=== PATIENT | male | born 1970 | race African-American/Black ===

== ENCOUNTER 2017-01-28 14:25 | Inpatient (IN) | payer SELFPAY ==
[2017-01-28 15:03] VITALS: BMI 22.6
--- NOTE | 2017-01-28 16:07 | HP ---
CIWA Score - CIWA Score Nausea/Vomitin Muscle Tremors: 4-Moderate,w/Arms Extend Anxiety: 4-Mod. Anxious/Guarded Agitation: 4-Moderately Restless Paroxysmal Sweats: 3 Orientation: 0-Oriented Tacttile Disturbances: 1-Very Mild Itch/Numbness Auditory Disturbances: 0-None Visual Disturbances: 0-None Headache: 1-Very Mild CIWA-Ar Total Score: 20 Admission ROS BHS - HPI Chief Complaint: requesting admission for alcohol withdrawal sx Allergies/Adverse Reactions: Allergies Allergy/AdvReac Type Severity Reaction Status Date / Time No Known Allergies Allergy Verified 01/28/17 15:26 History of Present Illness: 46 yo m with h/o chronic alcoholism and HTN, has not been taking meds, multiple admissions inpatient detoxification smokes 1PPD PMHX anxiety, depression, torn rotator cuff s/p surgery diverticulitis has recently relpased was sober x 8 months last year, 4 months before that. no h/o withdrawal seizures or dts never been intubated, reports SASHA when he does not drink, last drink today. drinks 2 pints vodka, no other drugs used. reports happiness kept him sober Exam Limitations: No Limitations - Ebola screening Have you traveled outside of the country in the last 21 days: No Have you had contact with anyone from an Ebola affected area: No Have you been sick,other than usual withdrawal symptoms: No Do you have a fever: No - Review of Systems Constitutional: Diaphoresis, Weakness, Unintentional Wgt. Loss EENT: reports: No Symptoms Reported Respiratory: reports: SOB with Exertion Cardiac: reports: Chest Pain (tender right chest wal on palpation) GI: reports: Abdominal Distended, Constipated, Nausea, Poor Appetite, Poor Fluid Intake, Indigestion, Abdominal cramping : reports: No Symptoms Reported Musculoskeletal: reports: No Symptoms Reported Integumentary: reports: Flushing, Sweating Neuro: reports: Headache, Numbness, Paresthesia, Tremors, Weakness Endocrine: reports: No Symptoms Reported Hematology: reports: No Symptoms Reported Psychiatric: reports: Judgement Intact, Mood/Affect Appropiate, Orientated x3, Agitated, Anxious, Depressed Other Systems: Reviewed and Negative Patient History - Patient Medical History Hx Anemia: No Hx Asthma: No Hx Chronic Obstructive Pulmonary Disease (COPD): No Hx Cancer: No Hx Cardiac Disorders: No Hx Congestive Heart Failure: No Hx Hypertension: Yes Hx Hypercholesterolemia: No Hx Pacemaker: No HX Cerebrovascular Accident: No Hx Seizures: No Hx Diabetes: No Hx Gastrointestinal Disorders: No Hx Liver Disease: No Hx Genitourinary Disorders: No Hx Sexually Transmitted Disorders: Yes (VENARIAL WARTS) Hx Renal Disease (ESRD): No Hx Thyroid Disease: No Hx Human Immunodeficiency Virus (HIV): No (LAST 08/07/14 NEGATIVE) Hx Hepatitis C: No Hx Depression: Yes Hx Suicide Attempt: No Hx Bipolar Disorder: No Hx Schizophrenia: No - Patient Surgical History Past Surgical History: Yes Hx Neurologic Surgery: No Hx Cataract Extraction: No Hx Cardiac Surgery: No Hx Lung Surgery: No Hx Breast Surgery: No Hx Breast Biopsy: No Hx Abdominal Surgery: Yes (DIVERTICULITIS COLOSTOMY REVERSED 11/2016) Hx Appendectomy: No Hx Cholecystectomy: No Hx Genitourinary Surgery: No Hx Section: No Hx Orthopedic Surgery: No Other Surgical History: Sx for R rotator cuff in 2002 Anesthesia Reaction: No - PPD History Previous Implant?: Yes Documented Results: Negative w/proof Implanted On Prior [facility] Admission?: Yes Date: 07/14/15 Results: 0 MM - Reproductive History Patient is a Female of Child Bearing Age (11 -55 yrs old): No Patient : No - Smoking Cessation Smoking history: Current every day smoker Have you smoked in the past 12 months: Yes Aproximately how many cigarettes per day: 15 Cigars Per Day: 0 Hx Chewing Tobacco Use: No Initiated information on smoking cessation: Yes 'Breaking Loose' booklet given: 01/28/17 - Substance & Tx. History Hx Alcohol Use: Yes Hx Substance Use: No Substance Use Type: Alcohol Hx Substance Use Treatment: Yes ([facility] in past) - Substances Abused Alcohol Route: Oral Frequency: Daily Amount used: VODKA(2 PINTS) Age of first use: 15 Date of Last Use: 01/28/17 Family Disease History - Family Disease History Family Disease History: Diabetes: Grandparent, Respiratory: Mother ( FROM COPD; drug abuse), Other: Mother Admission Physical Exam BHS - Vital Signs Vital Signs: Vital Signs - 24 hr 01/28/17 15:02 Temperature 98.3 F Pulse Rate 101 H Respiratory 20 Rate Blood Pressure 135/95 - Physical General Appearance: Yes: Disheveled, Mild Distress, Thin, Tremorous, Irritable, Sweating, Anxious HEENTM: Yes: Within Normal Limits, EOMI, Hearing grossly Normal, Normal ENT Inspection, Normocephalic, Normal Voice, EVAN, Pharynx Normal, Tm's normal Respiratory: Yes: Within Normal Limits, Chest Non-Tender, Lungs Clear, Normal Breath Sounds, No Respiratory Distress, No Accessory Muscle Use Neck: Yes: Within Normal Limits, No masses,lesions,Nodules, Supple, Trachea in good position Breast: Yes: Breast Exam Deferred Cardiology: Yes: Within Normal Limits, Regular Rhythm, Regular Rate, S1, S2 Abdominal: Yes: Normal Bowel Sounds, Non Tender, Flat, Soft, Increased Bowel Sounds Genitourinary: Yes: Within Normal Limits Back: Yes: Within Normal Limits, Normal Inspection Musculoskeletal: Yes: Within Normal Limits, full range of Motion Extremities: Yes: Normal Capillary Refill, Normal Range of Motion, Non-Tender, Tremors Neurological: Yes: 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 NML intact, Fully Oriented, Alert, Motor Strength 5/5, Normal Response, Depressed Affect Integumentary: Yes: Normal Color, Warm, Diaphoresis, Moist Lymphatic: Yes: Within Normal Limits - Addiitonal Findings: alcohol withdrawal sx noted - Diagnostic (1) Alcohol dependence with uncomplicated withdrawal Current Visit: Yes Status: Chronic (2) Alcohol-induced anxiety disorder Current Visit: Yes Status: Acute (3) Alcohol-induced sleep disorder Current Visit: Yes Status: Acute (4) Diverticulitis Current Visit: No Status: Chronic (5) Drug-induced mood disorder Current Visit: Yes Status: Acute (6) Macrocytic anemia Current Visit: No Status: Suspected (7) Syncope Current Visit: Yes Status: Acute (8) Weight loss Current Visit: Yes Status: Acute (9) Anxiety and depression Current Visit: No Status: Chronic (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 (11) Hypertension Current Visit: No Status: Chronic Qualifiers: Hypertension type: essential hypertension Qualified Code(s): I10 - Essential (primary) hypertension (12) Nicotine dependence Current Visit: Yes Status: Chronic Qualifiers: Nicotine product type: cigarettes Substance use status: uncomplicated Qualified Code(s): F17.210 - Nicotine dependence, cigarettes, uncomplicated Cleared for Admission S - Detox or Rehab [facility] Level of Care: Medically Managed Detox Regimen/Protocol: Librium BHS Breath Alcohol Content Breath Alcohol Content: 0.205 Urine Drug Screen - Results Drug Screen Negative: Yes
[2017-01-28] MEDS ORDERED: NICOTINE POLACRILEX 4 MG GUM BC PRN (16:45)
[2017-01-28] MEDS ORDERED: ACETAMINOPHEN 325 MG TABLET (FP) PO PRN (16:45)
[2017-01-28] MEDS ORDERED: guaiFENesin/D-METHORPHAN HB 10 ML UNIT-DOSE CUPS PO PRN (16:45)
[2017-01-28] MEDS ORDERED: P-EPHED 60MG/TRIPROLIDI 2.5MG TABLET PO PRN (16:45)
[2017-01-28] MEDS ORDERED: hydrOXYzine PAMOATE 50 MG CAPSULE (FP) PO PRN (16:45)
[2017-01-28] MEDS ORDERED: IBUPROFEN 400 MG TABLET (FP) PO PRN (16:45)
[2017-01-28] MEDS ORDERED: MAGNESIUM CITRATE 300 ML BOTTLE PO PRN (16:45)
[2017-01-28] MEDS ORDERED: MAG HYDROX/AL HYDROX/SIMETH 30 ML UNIT-DOSE CUP PO PRN (16:45)
[2017-01-28] MEDS ORDERED: LOPERAMIDE HCL 2 MG CAPSULE PO PRN (16:45)
[2017-01-28] MEDS ORDERED: chlordiazePOXIDE HCL 25 MG CAPSULE PO PRN (16:45)
[2017-01-28] MEDS ORDERED: MENTHOL/PHENOL 1 EACH UD MM PRN (16:45)
[2017-01-28] MEDS ORDERED: chlordiazePOXIDE HCL 25 MG CAPSULE PO ONE (16:45)
[2017-01-28] MEDS ORDERED: MAGNESIUM HYDROX 2400MG/30ML ORAL SUSPENSION 30 ML CUP PO PRN (16:45)
[2017-01-28] MEDS: METOPROLOL SUCCINATE 50 MG TAB.SR.24H (FP) PO SCH (17:55)
[2017-01-28] MEDS ORDERED: chlordiazePOXIDE HCL 25 MG CAPSULE ONE (17:59)
[2017-01-28] MEDS: NICOTINE 21 MG/24 HOURS TOPICAL PATCH TD SCH (18:33)
[2017-01-28] MEDS: THIAMINE HCL 100 MG TABLET (FP) PO SCH (22:46)
[2017-01-28] MEDS: chlordiazePOXIDE HCL 25 MG CAPSULE PO SCH (22:46)
[2017-01-29] MEDS: chlordiazePOXIDE HCL 25 MG CAPSULE PO SCH ×4 (05:30→22:19)
[2017-01-29 09:37] LABS: MCH 30.7 pg (25.7-33.7); MCHC 32.8 g/dl (32.0-35.9); MEAN CELL VOLUME 93.6 fl (80-96); MEAN PLT VOLUME 8.4 fl (7.5-11.1); PLATELET COUNT 235 K/MM3 (134-434); RDW 19.1 % (11.9-15.9); WHITE BLOOD COUNT 3.7 K/mm3 (4.0-10.0)
[2017-01-29 10:00] LABS: SGOT/AST 64 U/L (15-37); SGPT/ALT 28 U/L (12-78)
[2017-01-29 10:04] LABS: ALBUMIN 3.7 g/dl (3.4-5.0); ALK PHOS 86 U/L (45-117); ANION GAP 6 (8-16); BILIRUBIN,TOTAL 0.5 mg/dL (0.2-1.0); CALCIUM 9.2 mg/dL (8.5-10.1); CO2 35 mmol/L (21-32); CREATININE 0.9 mg/dL (0.7-1.3); GLUCOSE,RANDOM 101 mg/dL (74-106); TOT PROT 6.9 g/dl (6.4-8.2)
--- NOTE | 2017-01-29 10:17 | CONSULT ---
[facility] Psychiatric Consult - Data Date of interview: 01/29/17 Admission source: [facility] Identifying data: This is a 46 year old Black male,father of 11 year old daughter, he is currenlty unemployed (was laid off from [employer]), he is domiciled. Substance Abuse History: Age of first use 15, drinks 2 pints of vodka, smokes cigarettes 15-20 1 day. Medical History: Significant for history of HTN, Diverticulosis and S/P Rotator Cuff repair right shoulder. Psychiatric History: Denies history psychiatric treatment other then was under the psychotherapy when was 15 year old when parents . He feels sometimes anxious. Physical/Sexual Abuse/Trauma History: Denies. Mental Status Exam - Mental Status Exam Alert and Oriented to: Time, Place, Person Cognitive Function: Grossly Intact Patient Appearance: Well Groomed Mood: Sad, Irritable Affect: Appropriate, Mood Congruent Patient Behavior: Cooperative Speech Pattern: Clear, Appropriate Voice Loudness: Normal Thought Process: Goal Oriented Thought Disorder: Not Present Hallucinations: Denies Suicidal Ideation: Denies Homicidal Ideation: Denies Insight/Judgement: Fair Sleep: Fair Appetite: Fair Muscle strength/Tone: Normal Gait/Station: Normal Psychiatric Findings - Problem List ([place] 1, 2,3) (1) Drug-induced mood disorder Current Visit: Yes Status: Acute (2) Alcohol dependence with uncomplicated withdrawal Current Visit: Yes Status: Chronic (3) Nicotine dependence Current Visit: Yes Status: Chronic Qualifiers: Nicotine product type: cigarettes Substance use status: uncomplicated Qualified Code(s): F17.210 - Nicotine dependence, cigarettes, uncomplicated - Initial Treatment Plan Initial Treatment Plan: to continue detox. protocol, monitor progress as needed.
[2017-01-29] MEDS: METOPROLOL SUCCINATE 50 MG TAB.SR.24H (FP) PO SCH (10:58)
[2017-01-29] MEDS: NICOTINE 21 MG/24 HOURS TOPICAL PATCH TD SCH (10:58)
[2017-01-29] MEDS: PRENATAL VITAMINS W/ FOLIC ACID TABLET (FP) PO SCH (10:59)
[2017-01-29] MEDS: THIAMINE HCL 100 MG TABLET (FP) PO SCH (22:19)
[2017-01-29] MEDS: diphenhydrAMINE HCL 50 MG CAPSULE PO PRN (22:19)
[2017-01-30] MEDS: chlordiazePOXIDE HCL 25 MG CAPSULE PO SCH ×3 (05:52→17:41)
[2017-01-30] MEDS: NICOTINE 21 MG/24 HOURS TOPICAL PATCH TD SCH (10:26)
[2017-01-30] MEDS: METOPROLOL SUCCINATE 50 MG TAB.SR.24H (FP) PO SCH (10:27)
[2017-01-30] MEDS: PRENATAL VITAMINS W/ FOLIC ACID TABLET (FP) PO SCH (10:27)
--- NOTE | 2017-01-30 12:03 | PN ---
S CIWA - CIWA Score Nausea/Vomitin-No Nausea/No Vomiting Muscle Tremors: 3 Anxiety: 3 Agitation: 4-Moderately Restless Paroxysmal Sweats: 3 Orientation: 0-Oriented Tacttile Disturbances: 0-None Auditory Disturbances: 0-None Visual Disturbances: 0-None Headache: 0-None Present CIWA-Ar Total Score: 13 BHS Progress Note (SOAP) Subjective: agitation sweats body aches shakes interrupted sleep irritable Objective: 01/30/17 12:01 Vital Signs Temperature 97.5 F L 01/30/17 06:00 Pulse Rate 86 01/30/17 11:12 Respiratory Rate 18 01/30/17 11:12 Blood Pressure 136/92 01/30/17 11:12 O2 Sat by Pulse Oximetry (%) Laboratory Tests 01/29/17 01/29/17 01/29/17 05:30 05:30 05:30 WBC 3.7 L RBC 4.26 D Hgb 13.1 D Hct 39.9 MCV 93.6 MCH 30.7 D MCHC 32.8 RDW 19.1 H D Plt Count 235 D MPV 8.4 D Sodium 142 Potassium 3.8 Chloride 101 Carbon Dioxide 35 H Anion Gap 6 L BUN 9 D Creatinine 0.9 D Creat Clearance w eGFR > 60 Random Glucose 101 D Calcium 9.2 Total Bilirubin 0.5 D AST 64 H D ALT 28 Alkaline Phosphatase 86 Total Protein 6.9 Albumin 3.7 RPR Titer Nonreactive rest of labs pending awake/alert ambulating no acute distress Assessment: 01/30/17 12:03 withdrawal sx Plan: continue detox increase fluids
[2017-01-30 18:02] LABS: URINE APPEARANCE CLOUDY; URINE BILIRUBIN NEGATIVE (NEGATIVE); URINE BLOOD NEGATIVE (NEGATIVE); URINE COLOR AMBER; URINE GLUCOSE (UA) NEGATIVE (NEGATIVE); URINE KETONE NEGATIVE (NEGATIVE); URINE LEUK ESTERASE NEGATIVE (NEGATIVE); URINE NITRITE NEGATIVE (NEGATIVE); URINE PROTEIN NEGATIVE (NEGATIVE); URINE UROBILINOGEN NEGATIVE mg/dL (0.2-1.0)
--- NOTE | 2017-01-30 18:36 | EKG ---
Test Reason : Blood Pressure : / mmHG Vent. Rate : 078 BPM Atrial Rate : 078 BPM P-R Int : 132 ms QRS Dur : 106 ms QT Int : 404 ms P-R-T Axes : 047 -20 059 degrees QTc Int : 460 ms NORMAL SINUS RHYTHM WITH SINUS ARRHYTHMIA NONSPECIFIC ST-T ABNORMALITIES WHEN COMPARED WITH ECG OF 28-DEC-2014 09:47, NO SIGNIFICANT CHANGE WAS FOUND REPEAT EKG IF CLINICALLY INDICATED Confirmed by ANDRES BRYAN MD ([id number]) on 01/30/2017 6:36:09 PM Referred By: Confirmed By:ANDRES BRYAN MD
--- NOTE | 2017-01-30 20:12 | PN ---
[facility] Note: 46 years old male admitted to [facility] [place] for alcohol detox, medical history of hypertension, depression, surgical treatment for diverticulosis with left colonstoma reversed approxi 2 months ago. contstipation resolved by mom x 1 , severe abdominal pain after dinner 01/30/17, reports dark green stool x 8 episode today multiple scar noted on abdomen, mild distended abdomen, tender, tolerate fluid better. ambulance had been called, information provided to JEREMÍAS Beltre.
[2017-01-30] MEDS: THIAMINE HCL 100 MG TABLET (FP) PO SCH (23:50)
[2017-01-30] MEDS: chlordiazePOXIDE 5 MG CAPSULE PO SCH (23:50)
[2017-01-31] MEDS ORDERED: cloNIDine HCL 0.1 MG TABLET PO ONE (03:38)
[2017-01-31] MEDS: chlordiazePOXIDE 5 MG CAPSULE PO SCH ×3 (05:29→17:27)
--- NOTE | 2017-01-31 10:10 | PN ---
S CIWA - CIWA Score Nausea/Vomitin Muscle Tremors: 4-Moderate,w/Arms Extend Anxiety: 4-Mod. Anxious/Guarded Agitation: 4-Moderately Restless Paroxysmal Sweats: 3 Orientation: 0-Oriented Tacttile Disturbances: 1-Very Mild Itch/Numbness Auditory Disturbances: 0-None Visual Disturbances: 0-None Headache: 1-Very Mild CIWA-Ar Total Score: 20 BHS Progress Note (SOAP) Subjective: nausea, sweats, interrupted sleep, anxiety, tremors Objective: 01/31/17 10:10 Vital Signs - 24 hr 01/30/17 01/30/17 01/30/17 11:12 14:28 16:45 Temperature 96.6 F L 98.8 F Pulse Rate 86 77 84 Respiratory 18 18 18 Rate Blood Pressure 136/92 145/99 137/89 01/31/17 01/31/17 03:35 05:56 Temperature 97.9 F 98.0 F Pulse Rate 76 76 Respiratory 18 18 Rate Blood Pressure 143/101 128/93 Laboratory Tests 01/29/17 01/29/17 01/29/17 05:30 05:30 05:30 WBC 3.7 L RBC 4.26 D Hgb 13.1 D Hct 39.9 MCV 93.6 MCH 30.7 D MCHC 32.8 RDW 19.1 H D Plt Count 235 D MPV 8.4 D Sodium 142 Potassium 3.8 Chloride 101 Carbon Dioxide 35 H Anion Gap 6 L BUN 9 D Creatinine 0.9 D Creat Clearance w eGFR > 60 Random Glucose 101 D Calcium 9.2 Total Bilirubin 0.5 D AST 64 H D ALT 28 Alkaline Phosphatase 86 Total Protein 6.9 Albumin 3.7 Urine Color Urine Appearance Urine pH Ur Specific [place] Urine Protein Urine Glucose (UA) Urine Ketones Urine Blood Urine Nitrite Urine Bilirubin Urine Urobilinogen Ur Leukocyte Esterase RPR Titer Nonreactive 01/30/17 17:52 WBC RBC Hgb Hct MCV MCH MCHC RDW Plt Count MPV Sodium Potassium Chloride Carbon Dioxide Anion Gap BUN Creatinine Creat Clearance w eGFR Random Glucose Calcium Total Bilirubin AST ALT Alkaline Phosphatase Total Protein Albumin Urine Color Myla Urine Appearance Cloudy Urine pH 8.0 D Ur Specific [place] 1.015 Urine Protein Negative Urine Glucose (UA) Negative Urine Ketones Negative Urine Blood Negative Urine Nitrite Negative Urine Bilirubin Negative Urine Urobilinogen Negative Ur Leukocyte Esterase Negative RPR Titer Assessment: 01/31/17 10:10 withdrawal sx Plan: cont detox
[2017-01-31] MEDS: METOPROLOL SUCCINATE 50 MG TAB.SR.24H (FP) PO SCH (10:21)
[2017-01-31] MEDS: NICOTINE 21 MG/24 HOURS TOPICAL PATCH TD SCH (10:21)
[2017-01-31] MEDS: PRENATAL VITAMINS W/ FOLIC ACID TABLET (FP) PO SCH (10:21)
[2017-01-31] MEDS: diphenhydrAMINE HCL 50 MG CAPSULE PO PRN (22:21)
[2017-01-31] MEDS: THIAMINE HCL 100 MG TABLET (FP) PO SCH (22:21)
[2017-01-31] MEDS: chlordiazePOXIDE HCL 10 MG CAPSULE PO SCH (22:21)
[2017-02-01] MEDS: chlordiazePOXIDE HCL 10 MG CAPSULE PO SCH (05:38)
[2017-02-01] MEDS: PRENATAL VITAMINS W/ FOLIC ACID TABLET (FP) PO SCH (09:53)
[2017-02-01] MEDS: METOPROLOL SUCCINATE 50 MG TAB.SR.24H (FP) PO SCH (09:54)
[2017-02-01] MEDS: NICOTINE 21 MG/24 HOURS TOPICAL PATCH TD SCH (09:54)
[2017-02-01 10:07] VITALS: BP 122/78; PULSE 75; TEMP 99.1
--- NOTE | 2017-02-01 13:03 | DS ---
[facility] Detox Discharge Summary Admission Date: 01/28/17 Discharge Date: 02/01/17 - History Present History: Alcohol Dependence - Physical Exam Results Vital Signs: Vital Signs Temperature 99.1 F 02/01/17 10:06 Pulse Rate 75 02/01/17 10:06 Respiratory Rate 16 02/01/17 10:06 Blood Pressure 122/78 02/01/17 10:06 O2 Sat by Pulse Oximetry (%) - Treatment Hospital Course: Detox Protocol Followed, Detoxed Safely, Responded well, Discharged Condition Good, Rehab Referral Accepted - Medication Discharge Medications: Ambulatory Orders Atorvastatin Ca [Lipitor -] 20 mg PO HS #7 tablet 12/29/14 Metoprolol Succinate [Toprol Xl] 50 mg PO DAILY 01/28/17 Multivitamin [One Daily] 1 each PO DAILY 01/28/17 [place]-3 Fatty Acids [[place]-3] 1,000 mg PO DAILY 01/28/17 Vit D3-Vit K/Berberine/Hops [Ostera Tablet] 1 tablet PO DAILY 01/28/17 - Diagnosis (1) Alcohol dependence with uncomplicated withdrawal Current Visit: Yes Status: Chronic (2) Nicotine dependence Current Visit: Yes Status: Chronic Qualifiers: Nicotine product type: cigarettes Substance use status: uncomplicated Qualified Code(s): F17.210 - Nicotine dependence, cigarettes, uncomplicated (3) Hypertension Current Visit: No Status: Chronic Qualifiers: Hypertension type: essential hypertension Qualified Code(s): I10 - Essential (primary) hypertension - AMA Did Patient Leave Against Medical Advice: No
== END 2017-02-01 09:50 | disposition home or self-care (01) | DRG 775 ==
LOC: YASAS 14:25 → Y6N 15:55
PROVIDERS: ADMIT Internal Medicine Addiction Medicine; ATTEND Internal Medicine Addiction Medicine
PROC: HZ2ZZZZ Detoxification Services for Substance Abuse Treatment (ICD-10-PCS; principal; 2017-01-28)
DX: F10.230 Alcohol dependence with withdrawal, uncomplicated (principal); F10.280 Alcohol dependence with alcohol-induced anxiety disorder; F10.282 Alcohol dependence with alcohol-induced sleep disorder; F17.210 Nicotine dependence, cigarettes, uncomplicated; F19.24 Other psychoactive substance dependence with psychoactive substance-induced mood disorder; F41.8 Other specified anxiety disorders; I10 Essential (primary) hypertension; D53.9 Nutritional anemia, unspecified; R10.9 Unspecified abdominal pain; R68.3 Clubbing of fingers; Z87.438 Personal history of other diseases of male genital organs; Z86.79 Personal history of other diseases of the circulatory system; Z87.898 Personal history of other specified conditions
CPT/HCPCS: 36415; 80053; 81003; 85027; 86593; 93005; 93010

== ENCOUNTER 2017-01-30 20:25 | Emergency (ER) | payer SELFPAY ==
[2017-01-30 21:07] VITALS: TEMP 98.5; BMI 23.6
--- NOTE | 2017-01-30 21:15 | PDOC ---
History of Present Illness - General Chief Complaint: Pain, Acute Stated Complaint: ABD PAIN Time Seen by Provider: 01/30/17 20:38 History Source: Patient Exam Limitations: No Limitations - History of Present Illness Initial Comments: 01/30/17 21:14 Patient is 46 y.o. male with a PMH of HTN and recent (01/16) colonic resection for diverticulosis with colostomy reversal who presents today c/o 1 day h/o acute cramping abdominal pain. Patient states the pain started suddenly today and has been intermittent, sharp/stabbing and patient cannot identify any triggering or relieving factors. Patient denies any chest pain, shortness of breath, nausea, vomiting or diarrhea. NKDA Social: (-) nicotine, (+) alcohol, 1 pint daily, (-) marijuana/cocaine/heroin Past History - Past Medical History Allergies/Adverse Reactions: Allergies Allergy/AdvReac Type Severity Reaction Status Date / Time No Known Allergies Allergy Verified 01/28/17 15:26 Home Medications: Ambulatory Orders Atorvastatin Ca [Lipitor -] 20 mg PO HS #7 tablet 12/29/14 Metoprolol Succinate [Toprol Xl] 50 mg PO DAILY 01/28/17 Multivitamin [One Daily] 1 each PO DAILY 01/28/17 [place]-3 Fatty Acids [[place]-3] 1,000 mg PO DAILY 01/28/17 Vit D3-Vit K/Berberine/Hops [Ostera Tablet] 1 tablet PO DAILY 01/28/17 Anemia: No Asthma: No Cancer: No Cardiac Disorders: No CVA: No COPD: No CHF: No Diabetes: No GI Disorders: No Disorders: No HTN: Yes Hypercholesterolemia: No Kidney Stones: No Liver Disease: No Psychiatric Problems: No Suicide Attempt (Hx): No Seizures: No Thyroid Disease: No - Surgical History Abdominal Surgery: Yes (DIVERTICULITIS COLOSTOMY REVERSED 11/2016) Appendectomy: No Cardiac Surgery: No Cholecystectomy: No Lung Surgery: No Neurologic Surgery: No Orthopedic Surgery: No - Reproductive History Testicular Surgery: No - Psycho/Social/Smoking Cessation Hx Anxiety: No Suicidal Ideation: No Smoking History: Never smoked Have you smoked in the past 12 months: Yes Number of Cigarettes Smoked Daily: 15 Cigars Per Day: 0 Information on smoking cessation initiated: No 'Breaking Loose' booklet given: 01/28/17 Hx Alcohol Use: Yes Drug/Substance Use Hx: No Substance Use Type: Alcohol Hx Substance Use Treatment: Yes ([facility] in past) Review of Systems - Review of Systems Constitutional: No: Chills, Fever HEENTM: No: Blurred Vision, Throat Pain Respiratory: No: Cough, Shortness of Breath Cardiac (ROS): No: Chest Pain, Palpitations ABD/GI: Yes: Nausea. No: Constipated, Diarrhea Neurological: No: Headache, Numbness, Seizure, Tingling All Other Systems: Reviewed and Negative *Physical Exam - Vital Signs Last Vital Signs Temp Pulse Resp BP Pulse Ox 98.5 F 86 19 137/104 100 01/30/17 21:05 01/30/17 21:05 01/30/17 21:05 01/30/17 21:05 01/30/17 21:05 - Physical Exam General Appearance: Yes: Nourished, Appropriately Dressed Neck: positive: Trachea midline, Supple Respiratory/Chest: positive: Lungs Clear, Normal Breath Sounds Cardiovascular: positive: Regular Rhythm, Regular Rate, S1, S2 Gastrointestinal/Abdominal: positive: Normal Bowel Sounds, Protuberent, Distended, Other ((+) peritoneal signs) Extremity: positive: Normal Capillary Refill, Cyanosis Integumentary: positive: Normal Color, Dry Neurologic: positive: Fully Oriented, Alert Medical Decision Making - Medical Decision Making 01/30/17 21:59 Patient is a 46 y.o. male with a PMH of recent colonic resection with colostomy reversal 06/29 to diverticulitis who presents c/o abdominal pain. Patient received her surgery on 01/[address] Barnes @ [facility], however we were unable to contact him. PLAN 1. CT Abdomen w/contrast 2. CBC, CMP 3. UA 4. Serum Alcohol *DC/Admit/Observation/Transfer Diagnosis at time of Disposition: Abdominal pain
--- NOTE | 2017-01-30 21:21 | PDOC ---
Attending Attestation - Resident Resident Name: Franca Perez - ED Attending Attestation I have performed the following: I have examined & evaluated the patient, The case was reviewed & discussed with the resident, I agree w/resident's findings & plan, Exceptions are as noted - HPI HPI: 01/30/17 21:19 Pt c/o abd pain Pt s/p recent abdominal surgery at another hospital for colon resction due to diverticular disease. - Physicial Exam PE: 01/31/17 02:36 *Physical Exam General Appearance: Yes: Appropriately Dressed. No: Apparent Distress, Intoxicated HEENT: positive: EOMI, EVAN, Normal ENT Inspection, Normal Voice, TMs Normal, Pharynx Normal. negative: Pale Conjunctivae, Photophobia, Scleral Icterus (R), Scleral Icterus (L) Neck: positive: Trachea midline, Normal Thyroid, Supple. negative: Tender, Rigid, Carotid bruit, Stridor, Lymphadenopathy (R), Lymphadenopathy (L), Thyromegaly Respiratory/Chest: positive: Lungs Clear, Normal Breath Sounds. negative: Chest Tender, Respiratory Distress, Accessory Muscle Use, Labored Respiration, RES, Crackles, Rales, Rhonchi, Stridor, Wheezing, Dullness Cardiovascular: positive: Regular Rhythm, Regular Rate, S1, S2. negative: Edema , JVD, Murmur, Bradycardia, Tachycardia Vascular Pulses: Dorsalis-Pedis (R): 2+, Doralis-Pedis (L): 2+ Gastrointestinal/Abdominal: positive: Normal Bowel Sounds, Flat, Soft. well healed surgical scar with mild tenderness negative: Organomegaly, Pulsatile Mass, Increased Bowel Sounds, Decreased BS, Distended, Guarding, Rebound, Hernia , Hepatomegaly, Spleenomegaly Lymphatic: negative: Adenopathy, Tenderness Musculoskeletal: positive: Normal Inspection. negative: CVA Tenderness, Decreased Range of Motion Extremity: positive: Normal Capillary Refill, Normal Inspection, Normal Range of Motion, Pelvis Stable. negative: Tender, Pedal Edema, Swelling, Erythema Integumentary: positive: Normal Color, Dry, Warm. 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 negative: EOM Palsy, Facial Droop, Sensory Deficit - Medical Decision Making 01/31/17 02:38 ct scan abd scan abd/pelvis negative for SBO. Pt to return to [facility] Discharge Disposition - Diagnosis Abdominal pain Qualifiers: Abdominal location: generalized Qualified Code(s): R10.84 - Generalized abdominal pain - Discharge Dispostion Disposition: HOME Condition at time of disposition: Stable Last Admission D/C Date: 08/18/15 Admit: No
[2017-01-30] MEDS ORDERED: morphine CARPU-JECT 2 MG/1 ML DISP.SYRIN SQ ONE (22:07)
[2017-01-30] MEDS ORDERED: SODIUM CHLORIDE 1,000 ML IV STA (22:12)
[2017-01-30] MEDS ORDERED: morphine CARPU-JECT 2 MG/1 ML DISP.SYRIN ONE (22:24)
[2017-01-30 22:29] LABS: URINE APPEARANCE TURBID; URINE BILIRUBIN NEGATIVE (NEGATIVE); URINE BLOOD NEGATIVE (NEGATIVE); URINE COLOR DKYELLOW; URINE GLUCOSE (UA) NEGATIVE (NEGATIVE); URINE KETONE NEGATIVE (NEGATIVE); URINE LEUK ESTERASE NEGATIVE (NEGATIVE); URINE NITRITE NEGATIVE (NEGATIVE); URINE PROTEIN NEGATIVE (NEGATIVE); URINE UROBILINOGEN NEGATIVE mg/dL (0.2-1.0)
[2017-01-30 22:45] LABS: BASOPHIL 0.5 % (0-2.0); EOSINOPHIL 2.3 % (0-4.5); MCH 31.5 pg (25.7-33.7); MCHC 34.2 g/dl (32.0-35.9); MEAN PLT VOLUME 8.5 fl (7.5-11.1); NEUTROPHILS 42.9 % (42.8-82.8); PLATELET COUNT 273 K/MM3 (134-434); RDW 19.8 % (11.9-15.9); WHITE BLOOD COUNT 4.9 K/mm3 (4.0-10.0)
[2017-01-30 23:58] LABS: ALBUMIN 2.9 g/dl (3.4-5.0); ANION GAP 6 (8-16); BILIRUBIN,TOTAL 0.2 mg/dL (0.2-1.0); CALCIUM 8.3 mg/dL (8.5-10.1); CO2 27 mmol/L (21-32); CREATININE 0.7 mg/dL (0.7-1.3); GLUCOSE,RANDOM 90 mg/dL (74-106); SGOT/AST 33 U/L (15-37); SGPT/ALT 27 U/L (12-78); TOT PROT 5.6 g/dl (6.4-8.2)
[2017-01-31 00:01] LABS: ALK PHOS 87 U/L (45-117); CPK 115 IU/L (39-308); TROPONIN I < 0.02 ng/ml (0.00-0.05)
[2017-01-31] MEDS ORDERED: LACTULOSE 20 GM/30 ML UDC (FOR ORAL USE ONLY) PO ONE (02:35)
[2017-01-31] MEDS ORDERED: KETOROLAC TROMETHAMINE 30 MG/1 ML VIAL IVPUSH ONE (02:35)
[2017-01-31] MEDS ORDERED: LACTULOSE 20 GM/30 ML UDC (FOR ORAL USE ONLY) ONE (02:56)
[2017-01-31] MEDS ORDERED: KETOROLAC TROMETHAMINE 30 MG/1 ML VIAL ONE (02:56)
[2017-01-31] MEDS ORDERED: MAG HYDROX/AL HYDROX/SIMETH 30 ML UNIT-DOSE CUP ONE (03:00)
[2017-01-31 03:11] VITALS: BP 144/103; PULSE 68
[2017-01-31 21:21] LABS: URINE MARIJUANA THC NEGATIVE ng/ml (CUTOFF=50)
== END 2017-01-31 03:13 | disposition home or self-care (01) ==
LOC: JER 20:25
PROC: 3E0337Z Introduction of Electrolytic and Water Balance Substance into Peripheral Vein, Percutaneous Approach (ICD-10-PCS; principal; 2017-01-30)
PROC: 3E0333Z Introduction of Anti-inflammatory into Peripheral Vein, Percutaneous Approach (ICD-10-PCS; 2017-01-30)
PROC: 3E023NZ Introduction of Analgesics, Hypnotics, Sedatives into Muscle, Percutaneous Approach (ICD-10-PCS; 2017-01-30)
DX: R10.84 Generalized abdominal pain (principal); I10 Essential (primary) hypertension; F10.10 Alcohol abuse, uncomplicated
CPT/HCPCS: 36415; 74177-TC; 80053; 80307; 81003; 84484; 85025; 99283-25

== ENCOUNTER 2017-12-18 04:25 | Inpatient (IN) | payer OTHER ==
--- NOTE | 2017-12-18 04:30 | HP ---
CIWA Score - CIWA Score Nausea/Vomitin-No Nausea/No Vomiting Muscle Tremors: 4-Moderate,w/Arms Extend Anxiety: 4-Mod. Anxious/Guarded Agitation: 4-Moderately Restless Paroxysmal Sweats: 4-Forehead w/Sweat Beads Orientation: 1-Uncertain about Date Tacttile Disturbances: 0-None Auditory Disturbances: 0-None Visual Disturbances: 0-None Headache: 1-Very Mild CIWA-Ar Total Score: 18 Admission ROS BHS - HPI Chief Complaint: C/O WITHDRAwal sx's . seeking detrox from alcohol Allergies/Adverse Reactions: Allergies Allergy/AdvReac Type Severity Reaction Status Date / Time No Known Allergies Allergy Verified 12/17/17 17:12 History of Present Illness: 47 Y.O. MALE WITH LONG HX/O ALCOHOLISM HERE FOR DETOX. CLIENT IS KNOWN TO THIS PROGRAM. LAST HERE A FEW MONTHS AGO. SELF REFFERED. REPORTS LONGEST CLEAN TIME 9 MONTHS SELF SUSTAINED, RELAPSING 2 YEARS AGO.DENIES HISTORY OF SEIZURES, AVH, SI/HI. DOES REPORT HX/O DT WITH WITHDRAWAL. REPORTS HE WAS STARTED ON ANTIBIOTIC TXMENT AND STEROIDS FOR A LUNG INFECTION BUT HAS NOT TAKEN THE MEDS SINCE RX A WEEK AGO DUE TO HIS DRINKING. 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 REPORTS HE WAS CLEARED BY HIS PMD TODAY BUT HAS NO DOCUMENTATION. CLIENT IS CURRENTLY WITH LOW GRADE TEMP. CLIENT RETURNS FROM [facility] BEING MEDICALLY CLEARED. SEE BELOW - Physical Exam Comments: 12/18/17 0105hrs: Received a phone call from [facility] stating that Mr. Dover does not have paperwork clearing him from legionnaires pneumonia. Patient states he had sputum culture done 4 days ago by his PMD and was informed today that he is clear from legionnaires pneumonia. 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 Chest x-ray performed 2v NAD, no obvious infiltrates. No fever, no chills, patient states he feels fine and is not week/fatigue. Lung sounds clear to auscultation to all fry Clear to return to [address] [place] [address] ED Treatment Course - RADIOLOGY Radiology Studies Ordered: Category Date Time Status CHEST PA & LAT [RAD] Stat Radiology 12/17/17 23:23 Taken - Medications Given in the ED: ED Medications Discontinued Medications Generic Name Dose Route Start Last Admin Trade Name Karolina PRN Reason Stop Dose Admin Chlordiazepoxide HCl 25 mg 12/17/17 22:12 12/17/17 22:17 Librium - PO 12/17/17 22:13 25 mg ONCE ONE Administration Progress Note - Progress Note Progress Note: Right arm: sitting 138/88 *DC/Admit/Observation/Transfer Diagnosis at time of Disposition: Visit for [facility] check - Discharge Dispostion Disposition: HOME Condition at time of disposition: Stable - Referrals Referrals: Shade Taylor [Primary Care Provider] - Exam Limitations: No Limitations - Ebola screening Have you traveled outside of the country in the last 21 days: No Have you had contact with anyone from an Ebola affected area: No Have you been sick,other than usual withdrawal symptoms: No Do you have a fever: No - Review of Systems Constitutional: Chills, Loss of Appetite, Night Sweats, Changes in sleep, Unexplained wgt Loss EENT: reports: Nose Congestion, Other (RUNNY NOSE) Respiratory: reports: Cough, Productive cough (GREENISH PHELGM) Cardiac: reports: No Symptoms Reported GI: reports: Constipated (LBM " DAYS AGO"), Poor Appetite : reports: No Symptoms Reported Musculoskeletal: reports: Joint Pain Integumentary: reports: No Symptoms Reported Neuro: reports: No Symptoms reported Endocrine: reports: No Symptoms Reported Hematology: reports: No Symptoms Reported Psychiatric: reports: Depressed Other Systems: Reviewed and Negative Patient History - Patient Medical History Hx Anemia: Yes (HX/O MACROCYTIC ANEMIA) Hx Asthma: No Hx Chronic Obstructive Pulmonary Disease (COPD): No Hx Cancer: No Hx Cardiac Disorders: No Hx Congestive Heart Failure: No Hx Hypertension: Yes (AMLODIPINE) Hx Hypercholesterolemia: No Hx Pacemaker: No HX Cerebrovascular Accident: No Hx Seizures: No Hx Diabetes: No Hx Gastrointestinal Disorders: No Hx Liver Disease: No Hx Genitourinary Disorders: No Hx Sexually Transmitted Disorders: No (genital warts) Hx Renal Disease (ESRD): No Hx Thyroid Disease: No Hx Human Immunodeficiency Virus (HIV): No Hx Hepatitis C: No Hx Depression: Yes Hx Suicide Attempt: No Hx Bipolar Disorder: No Hx Schizophrenia: No - Patient Surgical History Past Surgical History: Yes Hx Neurologic Surgery: No Hx Cataract Extraction: No Hx Cardiac Surgery: No Hx Lung Surgery: No Hx Breast Surgery: No Hx Breast Biopsy: No Hx Abdominal Surgery: Yes (DIVERTICULITIS COLOSTOMY REVERSED 11/2016) Hx Appendectomy: No Hx Cholecystectomy: No Hx Genitourinary Surgery: No Hx Section: No Hx Orthopedic Surgery: No Other Surgical History: Sx for R rotator cuff in 2002 Anesthesia Reaction: No - PPD History Previous Implant?: Yes Documented Results: Negative w/proof Implanted On Prior [facility] Admission?: Yes Date: 01/30/17 Results: 0 MM PPD to be Administered?: Yes - Smoking Cessation Smoking history: Current every day smoker Have you smoked in the past 12 months: Yes Aproximately how many cigarettes per day: 10 Cigars Per Day: 0 Hx Chewing Tobacco Use: No Initiated information on smoking cessation: Yes 'Breaking Loose' booklet given: 12/18/17 - Substance & Tx. History Hx Alcohol Use: Yes Hx Substance Use: Yes Substance Use Type: Alcohol Hx Substance Use Treatment: Yes ([facility]) - Substances Abused VODKA Route: Oral Frequency: Daily Amount used: 2 PINTS Age of first use: 15 Date of Last Use: 12/17/17 Family Disease History - Family Disease History Family Disease History: Diabetes: Grandparent, Respiratory: Mother ( FROM COPD; drug abuse), Other: Mother Admission Physical Exam [facility] - Physical General Appearance: Yes: Appropriately Dressed, Sweating HEENTM: Yes: EOMI, Normocephalic, Normal Voice, EVAN, Pharynx Normal, Tm's normal Respiratory: Yes: Chest Non-Tender, Lungs Clear, Normal Breath Sounds, No Respiratory Distress, No Accessory Muscle Use Neck: Yes: No masses,lesions,Nodules, Supple, Trachea in good position Breast: Yes: Breast Exam Deferred Cardiology: Yes: Regular Rhythm, Regular Rate, S1, S2 Abdominal: Yes: Normal Bowel Sounds, Non Tender, Flat, Soft, Surgical Scar Genitourinary: Yes: Within Normal Limits Back: Yes: Normal Inspection Musculoskeletal: Yes: full range of Motion, Gait Steady, Back pain Extremities: Yes: Normal Range of Motion, Non-Tender, Other (CLUBBED FINGERS) Neurological: Yes: Fully Oriented, Alert, Motor Strength 5/5 Integumentary: Yes: Warm, Moist Lymphatic: Yes: Within Normal Limits - Diagnostic (1) History of anemia Current Visit: Yes Status: Chronic (2) Weight loss Current Visit: Yes Status: Chronic (3) Alcohol dependence with uncomplicated withdrawal Current Visit: Yes Status: Acute (4) Anxiety and depression Current Visit: Yes Status: Suspected (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 (6) Hypertension Current Visit: Yes Status: Chronic Qualifiers: Hypertension type: essential hypertension Qualified Code(s): I10 - Essential (primary) hypertension (7) Nicotine dependence Current Visit: Yes Status: Chronic Qualifiers: Nicotine product type: cigarettes Substance use status: uncomplicated Qualified Code(s): F17.210 - Nicotine dependence, cigarettes, uncomplicated (8) Constipation Current Visit: Yes Status: Acute Qualifiers: Constipation type: unspecified constipation type Qualified Code(s): K59.00 - Constipation, unspecified Cleared for Admission BHS - Detox or Rehab [facility] Level of Care: Medically Managed Detox Regimen/Protocol: Librium Claeared for Rehab Admission: No BHS Breath Alcohol Content Breath Alcohol Content: 0.27 Vital Signs - Vital Signs Vital Signs Refused: No Temperature: 98.9 F Temperature Source: Oral Pulse Rate: 98 Respiratory Rate: 18 Blood Pressure: 138/88 BP Location: Left Arm Blood Pressure Position: Sitting - Height Height: 5 ft 9 in - Weight Weight: 67.58 kg Weight Measurement Method: Standing Scale Body Mass Index (BMI): 21.9 - Bowel Function Bowel Movement: No Urine Drug Screen - Test Device Lot Number: [id number] Expiration Date: 08/26/19 - Control Is Test Valid: Yes - Results Drug Screen Negative: Yes
[2017-12-18] MEDS ORDERED: P-EPHED 60MG/TRIPROLIDI 2.5MG TABLET PO PRN (04:51)
[2017-12-18] MEDS ORDERED: chlordiazePOXIDE HCL 25 MG CAPSULE PO PRN (04:51)
[2017-12-18] MEDS ORDERED: MAGNESIUM HYDROX 2400MG/30ML ORAL SUSPENSION 30 ML CUP PO PRN (04:51)
[2017-12-18] MEDS ORDERED: NICOTINE POLACRILEX 2 MG GUM BC PRN (04:51)
[2017-12-18] MEDS ORDERED: LOPERAMIDE HCL 2 MG CAPSULE PO PRN (04:51)
[2017-12-18] MEDS ORDERED: guaiFENesin/D-METHORPHAN HB 10 ML UNIT-DOSE CUPS PO PRN (04:51)
[2017-12-18] MEDS ORDERED: ACETAMINOPHEN 325 MG TABLET (FP) PO PRN (04:51)
[2017-12-18] MEDS ORDERED: MAG HYDROX/AL HYDROX/SIMETH 30 ML UNIT-DOSE CUP PO PRN (04:51)
[2017-12-18] MEDS ORDERED: MENTHOL/PHENOL 1 EACH UD MM PRN (04:51)
[2017-12-18] MEDS ORDERED: IBUPROFEN 400 MG TABLET (FP) PO PRN (04:51)
[2017-12-18] MEDS ORDERED: MAGNESIUM CITRATE 300 ML BOTTLE PO PRN (04:51)
[2017-12-18 04:52] VITALS: BMI 21.9
[2017-12-18] MEDS: chlordiazePOXIDE HCL 25 MG CAPSULE PO SCH ×4 (06:02→22:26)
[2017-12-18] MEDS: NICOTINE 14 MG/24 HOURS TOPICAL PATCH TD SCH (10:07)
[2017-12-18] MEDS: PRENATAL VITAMINS W/ FOLIC ACID TABLET (FP) PO SCH (10:07)
[2017-12-18] MEDS: amLODIPine BESYLATE 5 MG TABLET (FP) PO SCH (10:07)
--- NOTE | 2017-12-18 10:57 | PN ---
BHS CIWA - CIWA Score Nausea/Vomitin Muscle Tremors: 3 Anxiety: 3 Agitation: 3 Paroxysmal Sweats: 1-Minimal Palms Moist Orientation: 0-Oriented Tacttile Disturbances: 1-Very Mild Itch/Numbness Auditory Disturbances: 1-Very Mild Visual Disturbances: 0-None Headache: 2-Mild CIWA-Ar Total Score: 16 BHS Progress Note (SOAP) Subjective: alert,irritable,anxious,interrupted sleep,tremor Objective: 12/18/17 10:54 Vital Signs Temperature 97.9 F 12/18/17 09:10 Pulse Rate 82 12/18/17 09:10 Respiratory Rate 18 12/18/17 09:10 Blood Pressure 134/85 12/18/17 09:10 O2 Sat by Pulse Oximetry (%) ekg nsr,normal ecg qt/qtc 404/448 labs pending Assessment: 12/18/17 10:56 withdrawal symptom Plan: continue detox
--- NOTE | 2017-12-18 13:51 | CONSULT ---
[facility] Psychiatric Consult - Data Date of interview: 12/18/17 Admission source: [facility] Identifying data: Patient is a 47 year old single male, father of one, employed but currently homeless. This is one of multiple admissions for patient. Pt. admitted to for alcohol dependence. Substance Abuse History: Smoking Cessation. Smoking history: Current every day smoker. Have you smoked in the past 12 months: Yes. Aproximately how many cigarettes per day: 10. Cigars Per Day: 0. Hx Chewing Tobacco Use: No. Initiated information on smoking cessation: Yes. 'Breaking Loose' booklet given : 12/18/17. - Substance & Tx. History. Hx Alcohol Use: Yes. Hx Substance Use : Yes. Substance Use Type: Alcohol. Hx Substance Use Treatment: Yes ([facility]). - Substances Abused. VODKA. Route: Oral. Frequency: Daily. Amount used: 2 PINTS. Age of first use: 15. Date of Last Use: 12/17/17 Medical History: Anemia, hypertension, Diverticulitis colostomy reversed 11/2016 Psychiatric History: Patient reports one psychiatric hospitalization at [facility] after the divorce of his parents at the age of 12. Pt. reports having difficulty handling the divorce. Pt. reports taking thorazine and haldol. Pt. denies OPD and psychiatric hospitalizations as an adult. Pt. reports poor sleep and is requesting melatonin for insomnia. Physical/Sexual Abuse/Trauma History: Denies. Mental Status Exam - Mental Status Exam Alert and Oriented to: Time, Place, Person Cognitive Function: Good Patient Appearance: Well Groomed Mood: Withdrawn, Euthymic Affect: Mood Congruent Patient Behavior: Cooperative Speech Pattern: Appropriate Voice Loudness: Moderately Soft/Quiet Thought Process: Intact, Goal Oriented Thought Disorder: Not Present Hallucinations: Denies Suicidal Ideation: Denies Homicidal Ideation: Denies Insight/Judgement: Poor Sleep: Poorly Appetite: Fair Muscle strength/Tone: Normal Gait/Station: Normal Psychiatric Findings - Problem List ([place] 1, 2,3) (1) Alcohol dependence with uncomplicated withdrawal Current Visit: Yes Status: Acute (2) Nicotine dependence Current Visit: Yes Status: Chronic Qualifiers: Nicotine product type: cigarettes Substance use status: uncomplicated Qualified Code(s): F17.210 - Nicotine dependence, cigarettes, uncomplicated (3) Drug-induced mood disorder Current Visit: Yes Status: Acute - Initial Treatment Plan Initial Treatment Plan: Psychoeducation provided. Detoxification in progress. Melatonin 5mg ordered for insomnia.
--- NOTE | 2017-12-18 14:59 | EKG ---
Test Reason : Blood Pressure : / mmHG Vent. Rate : 073 BPM Atrial Rate : 073 BPM P-R Int : 142 ms QRS Dur : 086 ms QT Int : 400 ms P-R-T Axes : 056 -24 075 degrees QTc Int : 440 ms NORMAL SINUS RHYTHM NORMAL ECG WHEN COMPARED WITH ECG OF 28-JAN-2017 17:00, ST NOW DEPRESSED IN INFERIOR LEADS Confirmed by Steve Weaver MD ([id number]) on 12/18/2017 2:58:49 PM Referred By: Confirmed By:Steve Weaver MD
[2017-12-18] MEDS: THIAMINE HCL 100 MG TABLET (FP) PO SCH (22:25)
[2017-12-18] MEDS: DOCUSATE SODIUM 100 MG CAPSULE (FP) PO SCH (22:25)
[2017-12-19] MEDS: chlordiazePOXIDE HCL 25 MG CAPSULE PO SCH ×4 (05:59→22:30)
[2017-12-19 10:04] LABS: ALBUMIN 3.4 g/dl (3.4-5.0); ALK PHOS 119 U/L (45-117); ANION GAP 5 (8-16); BILIRUBIN,TOTAL 0.8 mg/dL (0.2-1.0); BLOOD UREA NITROGEN 9 mg/dL (7-18); CALCIUM 8.9 mg/dL (8.5-10.1); CHLORIDE 99 mmol/L (98-107); CO2 33 mmol/L (21-32); CREATININE 0.8 mg/dL (0.7-1.3); POTASSIUM 3.4 mmol/L (3.5-5.1); SGOT/AST 157 U/L (15-37); SGPT/ALT 79 U/L (12-78); SODIUM 137 mmol/L (136-145); TOT PROT 6.4 g/dl (6.4-8.2)
[2017-12-19 10:17] LABS: HEMOGLOBIN 12.8 GM/dL (11.7-16.9); MCH 34.5 pg (25.7-33.7); MCHC 34.6 g/dl (32.0-35.9); MEAN CELL VOLUME 99.8 fl (80-96); MEAN PLT VOLUME 9.4 fl (7.5-11.1); PLATELET COUNT 146 K/MM3 (134-434); RBC 3.71 M/mm3 (4.00-5.60); WHITE BLOOD COUNT 3.7 K/mm3 (4.0-10.0)
[2017-12-19 10:30] LABS: GLUCOSE,RANDOM 129 mg/dL (74-106)
[2017-12-19] MEDS: PRENATAL VITAMINS W/ FOLIC ACID TABLET (FP) PO SCH (10:57)
[2017-12-19] MEDS: amLODIPine BESYLATE 5 MG TABLET (FP) PO SCH (10:57)
[2017-12-19] MEDS: NICOTINE 14 MG/24 HOURS TOPICAL PATCH TD SCH (10:58)
--- NOTE | 2017-12-19 12:07 | PN ---
S CIWA - CIWA Score Nausea/Vomitin Muscle Tremors: 3 Anxiety: 3 Agitation: 2 Paroxysmal Sweats: 1-Minimal Palms Moist Orientation: 0-Oriented Tacttile Disturbances: 1-Very Mild Itch/Numbness Auditory Disturbances: 1-Very Mild Visual Disturbances: 0-None Headache: 2-Mild CIWA-Ar Total Score: 16 S Progress Note (SOAP) Subjective: alert,irritable,anxious,interrupted sleep Objective: 12/19/17 12:03 Vital Signs Temperature 98.4 F 12/19/17 10:01 Pulse Rate 79 12/19/17 10:01 Respiratory Rate 18 12/19/17 10:01 Blood Pressure 116/81 12/19/17 10:01 O2 Sat by Pulse Oximetry (%) Laboratory Last Values WBC 3.7 K/mm3 (4.0-10.0) L 12/19/17 07:00 RBC 3.71 M/mm3 (4.00-5.60) L 12/19/17 07:00 Hgb 12.8 GM/dL (11.7-16.9) 12/19/17 07:00 Hct 37.0 % (35.4-49) 12/19/17 07:00 MCV 99.8 fl (80-96) H 12/19/17 07:00 MCH 34.5 pg (25.7-33.7) H 12/19/17 07:00 MCHC 34.6 g/dl (32.0-35.9) 12/19/17 07:00 RDW 15.0 % (11.9-15.9) D 12/19/17 07:00 Sodium 137 mmol/L (136-145) 12/19/17 07:00 Potassium 3.4 mmol/L (3.5-5.1) L 12/19/17 07:00 Chloride 99 mmol/L (98-107) 12/19/17 07:00 Carbon Dioxide 33 mmol/L (21-32) H D 12/19/17 07:00 Anion Gap 5 (8-16) L 12/19/17 07:00 BUN 9 mg/dL (7-18) 12/19/17 07:00 Creatinine 0.8 mg/dL (0.7-1.3) 12/19/17 07:00 Creat Clearance w eGFR > 60 (>60) 12/19/17 07:00 Random Glucose 129 mg/dL (74-106) H D 12/19/17 07:00 Calcium 8.9 mg/dL (8.5-10.1) 12/19/17 07:00 Total Bilirubin 0.8 mg/dL (0.2-1.0) 12/19/17 07:00 AST 157 U/L (15-37) H D 12/19/17 07:00 ALT 79 U/L (12-78) H D 12/19/17 07:00 Alkaline Phosphatase 119 U/L (45-117) H 12/19/17 07:00 Total Protein 6.4 g/dl (6.4-8.2) 12/19/17 07:00 Albumin 3.4 g/dl (3.4-5.0) 12/19/17 07:00 RPR Titer Nonreactive (NONREACTIVE) 12/19/17 07:00 Assessment: 12/19/17 12:05 withdrawal symptom Plan: continue detox,k dur 20 meq po daily k is 3.4,fasting glucose in am,bgm bid, d/c tylenol dus to elevation on alt,ast,repeat cmp,inr in am
[2017-12-19] MEDS: POTASSIUM CHLORIDE TABS 20 MEQ TABLET.ER (FP) PO SCH (14:22)
[2017-12-19] MEDS: THIAMINE HCL 100 MG TABLET (FP) PO SCH (22:30)
[2017-12-19] MEDS: DOCUSATE SODIUM 100 MG CAPSULE (FP) PO SCH (22:30)
[2017-12-19] MEDS: MELATONIN 5 MG TABLETS PO PRN (22:31)
[2017-12-19 22:57] LABS: URINE APPEARANCE SLCLOUDY; URINE BILIRUBIN NEGATIVE (<2.0 mg/dL); URINE COLOR AMBER; URINE GLUCOSE (UA) NEGATIVE (NEGATIVE); URINE KETONE NEGATIVE (NEGATIVE); URINE LEUK ESTERASE NEGATIVE (NEGATIVE); URINE NITRITE NEGATIVE (NEGATIVE)
[2017-12-19 22:58] LABS: URINE PROTEIN 1+ (NEGATIVE)
[2017-12-19 23:00] LABS: EPI CELLS RARE /HPF (FEW); URIC ACID CRYSTALS RARE /hpf (NONE SEEN); URINE MUCUS FEW
[2017-12-20] MEDS: chlordiazePOXIDE 5 MG CAPSULE PO SCH ×4 (05:28→22:18)
[2017-12-20 10:12] LABS: INR 0.91 (0.82-1.09); PROTHROMBIN TIME (PATIENT) 10.3 SEC (9.7-13.0)
[2017-12-20] MEDS: amLODIPine BESYLATE 5 MG TABLET (FP) PO SCH (10:14)
[2017-12-20] MEDS: PRENATAL VITAMINS W/ FOLIC ACID TABLET (FP) PO SCH (10:14)
[2017-12-20] MEDS: POTASSIUM CHLORIDE TABS 20 MEQ TABLET.ER (FP) PO SCH (10:14)
[2017-12-20 10:17] LABS: CHLORIDE 107 mmol/L (98-107); POTASSIUM 3.9 mmol/L (3.5-5.1); SODIUM 141 mmol/L (136-145)
[2017-12-20 10:36] LABS: ALBUMIN 3.3 g/dl (3.4-5.0); ALK PHOS 133 U/L (45-117); ANION GAP 7 (8-16); BILIRUBIN,TOTAL 0.4 mg/dL (0.2-1.0); BLOOD UREA NITROGEN 10 mg/dL (7-18); CALCIUM 9.1 mg/dL (8.5-10.1); CO2 27 mmol/L (21-32); CREATININE 0.7 mg/dL (0.7-1.3); GLUCOSE,RANDOM 104 mg/dL (74-106); SGOT/AST 109 U/L (15-37); SGPT/ALT 71 U/L (12-78); TOT PROT 5.9 g/dl (6.4-8.2)
[2017-12-20] MEDS: NICOTINE 14 MG/24 HOURS TOPICAL PATCH TD SCH (10:46)
--- NOTE | 2017-12-20 12:07 | PN ---
S CIWA - CIWA Score Nausea/Vomitin Muscle Tremors: 3 Anxiety: 2 Agitation: 2 Paroxysmal Sweats: 1-Minimal Palms Moist Orientation: 0-Oriented Tacttile Disturbances: 1-Very Mild Itch/Numbness Auditory Disturbances: 1-Very Mild Visual Disturbances: 0-None Headache: 2-Mild CIWA-Ar Total Score: 15 BHS Progress Note (SOAP) Subjective: alert,irritable,anxious,interrupted sleep,pain in the body Objective: 12/20/17 12:06 Vital Signs Temperature 98 F 12/20/17 10:03 Pulse Rate 79 12/20/17 10:03 Respiratory Rate 16 12/20/17 10:03 Blood Pressure 106/71 12/20/17 10:03 O2 Sat by Pulse Oximetry (%) Assessment: 12/20/17 12:07 withdrawal symptom Plan: continue detox
[2017-12-20] MEDS: hydrOXYzine PAMOATE 50 MG CAPSULE (FP) PO PRN ×2 (17:27→22:18)
[2017-12-20] MEDS: DOCUSATE SODIUM 100 MG CAPSULE (FP) PO SCH (22:18)
[2017-12-20] MEDS: THIAMINE HCL 100 MG TABLET (FP) PO SCH (22:18)
[2017-12-21] MEDS: chlordiazePOXIDE HCL 10 MG CAPSULE PO SCH ×4 (06:01→22:16)
--- NOTE | 2017-12-21 09:57 | PN ---
S Progress Note (SOAP) Subjective: alert,irritable,anxious,interrupted sleep Objective: 12/21/17 09:56 Vital Signs Temperature 97.7 F 12/21/17 09:27 Pulse Rate 77 12/21/17 09:27 Respiratory Rate 19 12/21/17 09:27 Blood Pressure 107/70 12/21/17 09:27 O2 Sat by Pulse Oximetry (%) Assessment: 12/21/17 09:56 withdrawal symptom Plan: continue detox,discharge in am
[2017-12-21] MEDS: amLODIPine BESYLATE 5 MG TABLET (FP) PO SCH (10:04)
[2017-12-21] MEDS: PRENATAL VITAMINS W/ FOLIC ACID TABLET (FP) PO SCH (10:04)
[2017-12-21] MEDS: POTASSIUM CHLORIDE TABS 20 MEQ TABLET.ER (FP) PO SCH (10:04)
[2017-12-21] MEDS: NICOTINE 14 MG/24 HOURS TOPICAL PATCH TD SCH (10:05)
[2017-12-21] MEDS: DOCUSATE SODIUM 100 MG CAPSULE (FP) PO SCH (22:16)
[2017-12-21] MEDS: THIAMINE HCL 100 MG TABLET (FP) PO SCH (22:16)
[2017-12-21] MEDS: MELATONIN 5 MG TABLETS PO PRN (22:17)
[2017-12-22 10:16] VITALS: BP 109/82; PULSE 80; TEMP 98.1
--- NOTE | 2017-12-22 14:51 | DS ---
[facility] Detox Discharge Summary Admission Date: 12/18/17 Discharge Date: 12/22/17 - History Present History: Alcohol Dependence - Physical Exam Results Vital Signs: Vital Signs Temperature 98.1 F 12/22/17 10:16 Pulse Rate 80 12/22/17 10:16 Respiratory Rate 18 12/22/17 10:16 Blood Pressure 109/82 12/22/17 10:16 O2 Sat by Pulse Oximetry (%) Pertinent Admission Physical Exam Findings: Withdrawal sx Laboratory Last Values WBC 3.7 K/mm3 (4.0-10.0) L 12/19/17 07:00 RBC 3.71 M/mm3 (4.00-5.60) L 12/19/17 07:00 Hgb 12.8 GM/dL (11.7-16.9) 12/19/17 07:00 Hct 37.0 % (35.4-49) 12/19/17 07:00 MCV 99.8 fl (80-96) H 12/19/17 07:00 MCH 34.5 pg (25.7-33.7) H 12/19/17 07:00 MCHC 34.6 g/dl (32.0-35.9) 12/19/17 07:00 RDW 15.0 % (11.9-15.9) D 12/19/17 07:00 Plt Count 146 K/MM3 (134-434) D 12/19/17 07:00 MPV 9.4 fl (7.5-11.1) D 12/19/17 07:00 PT with INR 10.30 SEC (9.7-13.0) 12/20/17 08:00 INR 0.91 (0.82-1.09) 12/20/17 08:00 Sodium 141 mmol/L (136-145) 12/20/17 08:00 Potassium 3.9 mmol/L (3.5-5.1) 12/20/17 08:00 Chloride 107 mmol/L (98-107) 12/20/17 08:00 Carbon Dioxide 27 mmol/L (21-32) 12/20/17 08:00 Anion Gap 7 (8-16) L 12/20/17 08:00 BUN 10 mg/dL (7-18) 12/20/17 08:00 Creatinine 0.7 mg/dL (0.7-1.3) 12/20/17 08:00 Creat Clearance w eGFR > 60 (>60) 12/20/17 08:00 POC Glucometer 123 UNITS (80-120) 12/21/17 17:07 Random Glucose 104 mg/dL (74-106) 12/20/17 08:00 Fasting Glucose 105 mg/dL (70-105) 12/20/17 08:00 Calcium 9.1 mg/dL (8.5-10.1) 12/20/17 08:00 Total Bilirubin 0.4 mg/dL (0.2-1.0) 12/20/17 08:00 AST 109 U/L (15-37) H D 12/20/17 08:00 ALT 71 U/L (12-78) 12/20/17 08:00 Alkaline Phosphatase 133 U/L (45-117) H D 12/20/17 08:00 Total Protein 5.9 g/dl (6.4-8.2) L 12/20/17 08:00 Albumin 3.3 g/dl (3.4-5.0) L 12/20/17 08:00 Urine Color Myla 12/19/17 22:30 Urine Appearance Slcloudy 12/19/17 22:30 Urine pH 8.0 (5.0-8.0) 12/19/17 22:30 Ur Specific [place] 1.025 (1.001-1.035) 12/19/17 22:30 Urine Protein 1+ (NEGATIVE) H 12/19/17 22:30 Urine Glucose (UA) Negative (NEGATIVE) 12/19/17 22:30 Urine Ketones Negative (NEGATIVE) 12/19/17 22:30 Urine Blood Negative (NEGATIVE) 12/19/17 22:30 Urine Nitrite Negative (NEGATIVE) 12/19/17 22:30 Urine Bilirubin Negative (<2.0 mg/dL) 12/19/17 22:30 Urine Urobilinogen 2.0 mg/dL (0.2-1.0) 12/19/17 22:30 Ur Leukocyte Esterase Negative (NEGATIVE) 12/19/17 22:30 Urine WBC (Auto) 2 /hpf (3-5) 12/19/17 22:30 Urine RBC (Auto) 2 /hpf (0-3) 12/19/17 22:30 Ur Epithelial Cells Rare /HPF (FEW) 12/19/17 22:30 Uric Acid Crystals Rare /hpf (NONE SEEN) 12/19/17 22:30 Urine Mucus Few 12/19/17 22:30 RPR Titer Nonreactive (NONREACTIVE) 12/19/17 07:00 Labs noted - Treatment Hospital Course: Detox Protocol Followed, Detoxed Safely, Responded well, Discharged Condition Good - Medication Discharge Medications: Ambulatory Orders Multivitamin [One Daily] 1 each PO DAILY 01/28/17 Amlodipine Besylate [Norvasc -] 5 mg PO DAILY 12/17/17 - Diagnosis (1) Alcohol dependence with uncomplicated withdrawal Status: Acute (2) History of anemia Status: Chronic (3) Hypertension Status: Chronic Qualifiers: Hypertension type: essential hypertension Qualified Code(s): I10 - Essential (primary) hypertension (4) Nicotine dependence Status: Chronic Qualifiers: Nicotine product type: cigarettes Substance use status: uncomplicated Qualified Code(s): F17.210 - Nicotine dependence, cigarettes, uncomplicated (5) Anxiety and depression Status: Suspected - AMA Did Patient Leave Against Medical Advice: No
== END 2017-12-22 09:37 | disposition home or self-care (01) | DRG 775 ==
LOC: YASAS 04:25 → Y6N 04:30
PROVIDERS: ADMIT Surgery; ATTEND Surgery
PROC: HZ2ZZZZ Detoxification Services for Substance Abuse Treatment (ICD-10-PCS; principal; 2017-12-18)
DX: F10.230 Alcohol dependence with withdrawal, uncomplicated (principal); F17.210 Nicotine dependence, cigarettes, uncomplicated; F19.24 Other psychoactive substance dependence with psychoactive substance-induced mood disorder; F41.8 Other specified anxiety disorders; I10 Essential (primary) hypertension; D64.9 Anemia, unspecified; R63.4 Abnormal weight loss; Z68.22 Body mass index [BMI] 22.0-22.9, adult; Z87.19 Personal history of other diseases of the digestive system
CPT/HCPCS: 36415; 80053; 81003; 81015; 82947; 82962; 85027; 85610; 86593; 93005; 93010

== ENCOUNTER 2024-07-31 21:39 | Inpatient (IN) | payer BC ==
[2024-07-31 22:11] VITALS: BMI 22.4
[2024-07-31] MEDS ORDERED: guaiFENesin 600 MG TABLET.ER (FP) PO PRN (23:12)
[2024-07-31] MEDS ORDERED: NICOTINE POLACRILEX 2 MG GUM BUC PRN (23:12)
[2024-07-31] MEDS ORDERED: MAGNESIUM HYDROX 2400MG/30ML ORAL SUSPENSION 30 ML CUP PO PRN (23:12)
[2024-07-31] MEDS ORDERED: ONDANSETRON *ODT* 4 MG TABLET SL PRN (23:12)
[2024-07-31] MEDS ORDERED: POLYETHYLENE GLYCOL (HEALTHYLAX) 3350 17 GM PACKET PO PRN (23:12)
[2024-07-31] MEDS ORDERED: ACETAMINOPHEN 325 MG TABLET (FP) PO PRN (23:12)
[2024-07-31] MEDS ORDERED: DICYCLOMINE HCL 10 MG CAPSULE PO PRN (23:12)
[2024-07-31] MEDS ORDERED: IBUPROFEN 600 MG TABLET (FP) PO PRN (23:12)
[2024-07-31] MEDS ORDERED: NICOTINE POLACRILEX 2 MG LOZENGE BC PRN (23:12)
[2024-07-31] MEDS ORDERED: MAG HYDROX/AL HYDROX/SIMETH 30 ML UNIT-DOSE CUP PO PRN (23:12)
[2024-07-31] MEDS ORDERED: NALOXONE (NARCAN) HCL 4 MG/0.1 ML SPRAY NS PRN (23:12)
[2024-07-31] MEDS ORDERED: LOPERAMIDE HCL 2 MG CAPSULE PO PRN (23:12)
[2024-07-31] MEDS ORDERED: IBUPROFEN 400 MG TABLET (FP) PO PRN (23:12)
[2024-07-31] MEDS ORDERED: BISMUTH SUBSALICYLATE 524 MG/30 ML PO PRN (23:12)
[2024-07-31] MEDS ORDERED: BENZONATATE 200 MG CAPSULE PO PRN (23:12)
[2024-07-31] MEDS ORDERED: BENZOCAINE/MENTHOL (CHLORASEPTIC ) LOZENGE MM PRN (23:12)
[2024-07-31] MEDS ORDERED: METOPROLOL TARTRATE 25 MG TABLET (FP) ONE (23:28)
[2024-07-31] MEDS: METOPROLOL TARTRATE 25 MG TABLET (FP) PO ONE (23:32)
[2024-08-01] MEDS ORDERED: METHOCARBAMOL 500 MG TABLET ONE (00:23)
[2024-08-01] MEDS: METHOCARBAMOL 500 MG TABLET PO PRN (00:28)
[2024-08-01] MEDS: LORazepam 2 MG TABLET PO ONE (08:26)
[2024-08-01] MEDS: LORazepam 2 MG TABLET PO SCH (10:37)
[2024-08-01] MEDS: PRENATAL VITAMINS W/ FOLIC ACID TABLET (FP) PO SCH (10:37)
[2024-08-01 11:19] LABS: HEMATOCRIT 39.7 % (35.4-49); HEMOGLOBIN 13.8 GM/dL (11.7-16.9); MCH 34.3 pg (25.7-33.7); MCHC 34.9 g/dl (32.0-35.9); MEAN CELL VOLUME 98.5 fl (80-96); MEAN PLT VOLUME 8.3 fl (7.5-11.1); PLATELET COUNT 139 10^3/uL (134-434); RBC 4.03 M/mm3 (4.00-5.60); RDW 16.3 % (11.9-15.9); WHITE BLOOD COUNT 2.5 K/mm3 (4.0-10.0)
[2024-08-01 11:32] LABS: POTASSIUM 3.9 mmol/L (3.5-5.1)
[2024-08-01 11:40] LABS: ALBUMIN 3.7 g/dl (3.4-5.0); CALCIUM 8.6 mg/dL (8.5-10.1)
[2024-08-01 11:45] LABS: CREATININE 0.9 mg/dL (0.55-1.3)
[2024-08-01 11:46] LABS: BILIRUBIN,TOTAL 0.5 mg/dL (0.2-1); TOT PROT 6.6 g/dl (6.4-8.2)
[2024-08-01] MEDS: amLODIPine BESYLATE 5 MG TABLET (FP) PO SCH (17:50)
[2024-08-01] MEDS: hydrOXYzine PAMOATE 25 MG CAPSULE (FP) PO PRN (17:50)
[2024-08-01] MEDS: LORazepam 1 MG TABLET PO PRN (20:50)
[2024-08-01 21:03] VITALS: RESP 18
[2024-08-01] MEDS: THIAMINE 100 MG TABLET PO SCH (22:59)
[2024-08-01] MEDS: MELATONIN 5 MG TABLETS PO SCH (22:59)
[2024-08-02 09:14] VITALS: BP 144/94; PULSE 88; TEMP 98.4
[2024-08-03] MEDS ORDERED: LORazepam 1 MG TABLET PO SCH (05:00)
[2024-08-04] MEDS ORDERED: LORazepam 0.5 MG TABLET PO PRN
[2024-08-04] MEDS ORDERED: LORazepam 0.5 MG TABLET PO SCH (05:00)
[2024-08-05] MEDS ORDERED: LORazepam 0.5 MG TABLET PO ONE (05:00)
== END 2024-08-02 12:27 | disposition left against medical advice (07) | DRG 894 ==
LOC: YASAS 21:39 → UNDOADMIN 22:09 → Y6N 22:09
PROVIDERS: ADMIT Allergy & Immunology; ATTEND Allergy & Immunology
PROC: HZ2ZZZZ Detoxification Services for Substance Abuse Treatment (ICD-10-PCS; principal; 2024-07-31)
DX: F10.230 Alcohol dependence with withdrawal, uncomplicated (principal); F17.210 Nicotine dependence, cigarettes, uncomplicated; F10.282 Alcohol dependence with alcohol-induced sleep disorder; I10 Essential (primary) hypertension; L30.9 Dermatitis, unspecified; M54.50 Low back pain, unspecified; G89.29 Other chronic pain; Z87.19 Personal history of other diseases of the digestive system
CPT/HCPCS: 36415; 80053; 80305; 80307; 85027; 86780; 93005; 93010